=== PATIENT | female | born 1965 | race Caucasian/White ===

== ENCOUNTER → 2022-03-01 | Outpatient (CLI) | payer BC | LOC: RAD 11:29 | DX: K56.41 Fecal impaction (principal) | CPT/HCPCS: 74022 ==

== ENCOUNTER 2022-04-10 14:52 | Inpatient (IN) | payer BC ==
[~2022-04-10] VITALS: Ht 165.1 cm; Wt 53.8 kg
[2022-04-10 16:11] LABS: HEMOGLOBIN 10.7 gm/dl (12.3-15.3); RED BLOOD COUNT 4.19 M/UL (4.00-5.10); WHITE BLOOD COUNT 5.1 K/UL (4.5-11.0)
[2022-04-10 16:35] LABS: BUN/CREATININE RATIO 19 (0-10)
[2022-04-11 01:53] LABS: HEMOGLOBIN 9.3 gm/dl (12.3-15.3); WHITE BLOOD COUNT 4.8 K/UL (4.5-11.0)
[2022-04-11 01:56] LABS: RED BLOOD COUNT 3.7 M/UL (4.00-5.10)
[2022-04-11 02:16] LABS: BUN/CREATININE RATIO 15 (0-10)
[2022-04-11] MEDS ORDERED: BUSPIRONE HCL15 MG PO (08:27)
[2022-04-11] MEDS ORDERED: DESYREL 50 MG T50 MG PO (08:28)
[2022-04-11] MEDS ORDERED: VISTARIL50 MG PO (08:29)
[2022-04-11] MEDS ORDERED: VENLAFAXINE HC150 MG PO (08:29)
[2022-04-11] MEDS ORDERED: DITROPAN 5 MG TA5 MG PO (08:29)
[2022-04-11] MEDS ORDERED: FLOVENT 220 MC7.9 GM INH (08:31)
[2022-04-11] MEDS ORDERED: ROPINIROLE HC0.25 MG PO (08:32)
[2022-04-11] MEDS ORDERED: ONDANSETRON HCL4 MG PO (08:33)
[2022-04-11] MEDS ORDERED: LAMOTRIGINE150 MG PO (08:34)
[2022-04-11] MEDS ORDERED: IBANDRONATE SO150 MG PO (12:04)
[2022-04-11] MEDS ORDERED: MULTI-VITAMIN1 EACH PO (14:29)
[2022-04-11] MEDS ORDERED: FERROUS FUMARA324 MG PO (14:29)
== END 2022-04-11 19:12 | DRG 918 ==
LOC: ER1 14:52 → CDU 18:15 → PROG CARE 18:15
PROVIDERS: Emergency Medicine; ADMIT Internal Medicine
DX: T45.0X2A Poisoning by antiallergic and antiemetic drugs, intentional self-harm, initial encounter (principal); T43.212A Poisoning by selective serotonin and norepinephrine reuptake inhibitors, intentional self-harm, initial encounter; D50.9 Iron deficiency anemia, unspecified; D64.9 Anemia, unspecified; I45.81 Long QT syndrome; E83.42 Hypomagnesemia; T14.91XA Suicide attempt, initial encounter; F32.A Depression, unspecified; Z98.41 Cataract extraction status, right eye; Z90.49 Acquired absence of other specified parts of digestive tract; Z88.2 Allergy status to sulfonamides; Z79.899 Other long term (current) drug therapy
CPT/HCPCS: 36415; 70450; 71045; 80048; 80053; 80307; 82533; 82607; 82728; 82746; 83540; 83550; 83735; 84100; 84439; 84443; 85025; 93005; 99285; G0480; J7042; Q0177